=== PATIENT | male | born 1960 | race Caucasian/White ===

== ENCOUNTER 2019-09-01 17:08 | Observation (INO) ==
[2019-09-01] MEDS ORDERED: Aspirin 325 MG TABLET PO ONE (17:29)
[2019-09-01] MEDS ORDERED: Furosemide 40 MG/4 ML VIAL IVP ONE (17:29)
[2019-09-01 18:06] LABS: Basophils % 0.6 %; Eosinophils # 0.2 K/mcL (0.0-0.6); Eosinophils % 2.6 %; Hematocrit 36.2 % (37.5-50.1); Hemoglobin 11.8 g/dL (12.9-16.9); Immature Granulocytes % 0.5 % (0-4); Lymphocytes # 1.2 K/mcL (0.6-4.6); Lymphocytes % 18.8 %; Mean Corpuscular HGB Conc 32.6 g/dL (31.6-35.5); Mean Corpuscular Hemoglobin 27.8 pg (28.0-33.3); Mean Corpuscular Volume 85.2 fL (83.0-100.0); Mean Platelet Volume 9.6 fL (9.4-12.4); Monocytes # 0.7 K/mcL (0.0-1.3); Monocytes % 11.5 %; Neutrophils # 4.1 K/mcL (1.6-8.9); Platelet Count 297 K/mcL (140-400); Red Blood Count 4.25 M/mcL (4.19-5.50); Red Cell Distribution Width 24.4 % (11.5-14.5); White Blood Count 6.2 K/mcL (4.3-11.1)
[2019-09-01 18:15] LABS: Prothrombin Time 11.4 Seconds (9.4-12.1)
[2019-09-01 18:18] LABS: Activated Partial Thrombo Time 28.8 Seconds (26.0-36.0)
[2019-09-01 18:31] LABS: Alanine Aminotransferase 20 Units/L (7-52); Albumin 3.7 g/dL (3.5-5.7); Albumin/Globulin Ratio 1.4 (1.1-2.2); Alkaline Phosphatase 103 Units/L (34-104); Anisocytosis 2+ (Not Present); Aspartate Amino Transferase 18 Units/L (13-39); BUN/Creatinine Ratio 9 (6-26); Bilirubin,Indirect 0.3 mg/dL (0.0-1.0); Bilirubin,Total 0.3 mg/dL (0.3-1.0); Blood Urea Nitrogen 9 mg/dL (6-20); Calcium 8.6 mg/dL (8.6-10.3); Carbon Dioxide 28 mEq/L (23-29); Chloride 98 mEq/L (98-107); Globulin 2.7 g/dL (2.4-3.5); Glucose 172 mg/dL (70-105); Osmolality,Calculated 289 (280-300); Platelet Estimate Normal (Normal); Poikilocytosis 1+ (Not Present); Potassium 3.4 mEq/L (3.5-5.1); Sodium 138 mEq/L (136-145); Total Protein 6.4 g/dL (6.4-8.9); Troponin I < 0.03 ng/mL (< 0.04); eGFR For African Americans > 60 (> 60); eGFR For Non-African Americans > 60 (> 60)
[2019-09-01] MEDS ORDERED: Isovue-370 500 ML BOTTLE IVP ONE (18:50)
[2019-09-02] MEDS ORDERED: Naloxone 0.4 MG/ML INJ IVP PRN (00:12)
[2019-09-02] MEDS ORDERED: Nicotine 2 MG GUM BC PRN (00:17)
[2019-09-02 01:09] LABS: Bilirubin,Urine Negative (Negative); Blood,Urine Negative (Negative); Clarity,Urine Clear (Clear); Color,Urine Yellow (Yellow); Glucose,Urine (UA) Normal (Normal); Ketones,Urine Negative (Negative); Leukocyte Esterase,Urine Negative (Negative); Nitrite,Urine Negative (Negative); PH,Urine 7.5 pH Units (5.0-8.0); Protein,Urine Negative (Neg-Trace); Specific Gravity,Urine 1.024 (1.010-1.025); Urobilinogen,Urine Normal (Normal)
[2019-09-02 01:13] LABS: Protein/Creatinine Ratio,Urine 0.2 mg/mg (0.00-0.20)
[2019-09-02 01:47] LABS: Adenovirus Not Detected (Not Detect); Bordetella Pertussis Not Detected (Not Detect); Chlamydophila pneumoniae Not Detected (Not Detect); Coronavirus 229E Not Detected (Not Detect); Coronavirus HKU1 Not Detected (Not Detect); Coronavirus NL63 Not Detected (Not Detect); Coronavirus OC43 Not Detected (Not Detect); Human Metapneumovirus Not Detected (Not Detect); Human Rhinovirus/Enterovirus DETECTED (Not Detect); Influenza A Subtype 2009 H1 Not Detected (Not Detect); Influenza A Untypeable Not Detected (Not Detect); Influenza B Not Detected (Not Detect); Mycoplasma pneumoniae Not Detected (Not Detect); Parainfluenza Virus 1 Not Detected (Not Detect); Parainfluenza Virus 2 Not Detected (Not Detect); Parainfluenza Virus 3 Not Detected (Not Detect); Parainfluenza Virus 4 Not Detected (Not Detect); Respiratory Syncytial Virus Not Detected (Not Detect)
[2019-09-02] MEDS: Albuterol 2.5 MG/3 ML NEBULIZER IH PRN ×3 (03:34→23:02)
[2019-09-02] MEDS: *HR* Heparin 5,000 UNIT/ML VIAL SQ SCH ×3 (06:08→21:27)
[2019-09-02] MEDS ORDERED: Potassium Chloride Elixir 20 MEQ/15 ML UDC PO ONE (06:21)
[2019-09-02] MEDS ORDERED: 0.9 % Sodium Chloride 500 ML IVC SCH (06:30)
[2019-09-02 07:08] LABS: % Iron Saturation 15 % (20-55); Alanine Aminotransferase 22 Units/L (7-52); Albumin/Globulin Ratio 1.4 (1.1-2.2); Alkaline Phosphatase 113 Units/L (34-104); Aspartate Amino Transferase 20 Units/L (13-39); BUN/Creatinine Ratio 7 (6-26); Bilirubin,Total 0.5 mg/dL (0.3-1.0); Blood Urea Nitrogen 6 mg/dL (6-20); Calcium 8.8 mg/dL (8.6-10.3); Carbon Dioxide 31 mEq/L (23-29); Chloride 96 mEq/L (98-107); Chol/HDL Ratio 4.4 (0-4.9); Cholesterol 182 mg/dL (< 200); Globulin 2.9 g/dL (2.4-3.5); Glucose 158 mg/dL (70-105); HDL Cholesterol 41 mg/dL (40-59); Iron 66 mcg/dL (65-175); LDL Cholesterol,Calculated 111 mg/dL (0-99); Osmolality,Calculated 291 (280-300); Phosphorous 3.1 mg/dL (2.7-4.5); Potassium 3.3 mEq/L (3.5-5.1); Sodium 140 mEq/L (136-145); Total Protein 6.9 g/dL (6.4-8.9); Transferrin 313 mg/dL (203-362); Triglycerides 151 mg/dL (< 150); Troponin I < 0.03 ng/mL (< 0.04); eGFR For African Americans > 60 (> 60); eGFR For Non-African Americans > 60 (> 60)
[2019-09-02 07:24] LABS: Ferritin 49 ng/mL (20-250)
[2019-09-02 07:27] LABS: Folate 15.8 ng/mL (3.0-16.0)
[2019-09-02 07:29] LABS: Basophils # 0.1 K/mcL (0.0-0.2); Basophils % 0.8 %; Eosinophils # 0.2 K/mcL (0.0-0.6); Eosinophils % 2.6 %; Hematocrit 40.4 % (37.5-50.1); Hemoglobin 12.9 g/dL (12.9-16.9); Immature Granulocytes % 0.3 % (0-4); Immature Platelets 2.2 % (1.1-6.1); Lymphocytes # 1.2 K/mcL (0.6-4.6); Lymphocytes % 17.9 %; Mean Corpuscular HGB Conc 31.9 g/dL (31.6-35.5); Mean Corpuscular Volume 84.5 fL (83.0-100.0); Mean Platelet Volume 9.5 fL (9.4-12.4); Monocytes # 0.6 K/mcL (0.0-1.3); Monocytes % 9.2 %; Neutrophils # 4.5 K/mcL (1.6-8.9); Platelet Count 289 K/mcL (140-400); Red Blood Count 4.78 M/mcL (4.19-5.50); Red Cell Distribution Width 24.6 % (11.5-14.5); Segmented Neutrophils % 69.2 %; White Blood Count 6.5 K/mcL (4.3-11.1)
[2019-09-02 08:05] LABS: Estimated Average Glucose 134 mg/dl
[2019-09-02 08:13] LABS: Anisocytosis 1+ (Not Present); Platelet Estimate Normal (Normal)
[2019-09-02] MEDS: ARIPiprazole 5 MG TABLET PO SCH (10:51)
[2019-09-02] MEDS: Nicotine 14 MG PATCH.TD24 TD SCH (10:51)
[2019-09-03 04:40] LABS: Hematocrit 39.3 % (37.5-50.1); Hemoglobin 12.5 g/dL (12.9-16.9); Mean Corpuscular HGB Conc 31.8 g/dL (31.6-35.5); Mean Corpuscular Hemoglobin 26.9 pg (28.0-33.3); Mean Corpuscular Volume 84.5 fL (83.0-100.0); Mean Platelet Volume 9.3 fL (9.4-12.4); Platelet Count 311 K/mcL (140-400); Red Blood Count 4.65 M/mcL (4.19-5.50); Red Cell Distribution Width 24.2 % (11.5-14.5); White Blood Count 5.8 K/mcL (4.3-11.1)
[2019-09-03 05:01] LABS: BUN/Creatinine Ratio 7 (6-26); Blood Urea Nitrogen 6 mg/dL (6-20); Calcium 8.6 mg/dL (8.6-10.3); Carbon Dioxide 30 mEq/L (23-29); Chloride 100 mEq/L (98-107); Glucose 150 mg/dL (70-105); Osmolality,Calculated 296 (280-300); Potassium 3.5 mEq/L (3.5-5.1); Sodium 143 mEq/L (136-145); eGFR For African Americans > 60 (> 60); eGFR For Non-African Americans > 60 (> 60)
[2019-09-03] MEDS: *HR* Heparin 5,000 UNIT/ML VIAL SQ SCH (05:30)
[2019-09-03] MEDS: ARIPiprazole 5 MG TABLET PO SCH (08:06)
[2019-09-03] MEDS: Nicotine 14 MG PATCH.TD24 TD SCH (08:07)
[2019-09-03] MEDS ORDERED: predniSONE 20 MG TABLET PO SCH (10:45)
[2019-09-03] MEDS ORDERED: Azithromycin 250 MG TABLET PO ONE (10:50)
[2019-09-03] MEDS ORDERED: Furosemide 20 MG TABLET PO SCH (11:00)
[2019-09-03 11:47] VITALS: BP 157/91
[2019-09-04] MEDS ORDERED: Azithromycin 250 MG TABLET PO SCH (09:00)
== END 2019-09-03 12:57 | disposition home or self-care (01) ==
LOC: EMEROOARM 17:08 → 3BNU 17:08
PROVIDERS: ADMIT Internal Medicine; ATTEND Internal Medicine